=== PATIENT | male | born 1970 | race Caucasian/White ===

== ENCOUNTER 2019-08-07 08:03 | Outpatient (CLI) | payer OTHER, SELFPAY ==
[2019-08-07 17:29] LABS: Basophils Percent Auto 0.4 % (0.2-1.2); Eosinophils Absolute Auto 0.2 K/mm3 (0-0.3); Eosinophils Percent Auto 2.1 % (0-4.4); Hematocrit 45.6 % (42.0-52.0); Hemoglobin 15.6 g/dL (14.0-18.0); Immature Granulocyte Absolute 0.03 K/mm3 (0.00-0.031); Immature Granulocyte Percent A 0.3 % (0-0.5); Lymphocytes Absolute Auto 2.96 K/mm3 (0.9-3.2); Lymphocytes Percent Auto 31.7 % (18.3-44.2); Mean Corpuscular HGB Conc 34.2 g/dl (32-36); Mean Corpuscular Hemoglobin 31.1 pg (26-34); Monocytes Absolute Auto 0.5 K/mm3 (0.1-0.6); Monocytes Percent Auto 5.6 % (2.6-8.5); Neutrophils Absolute Auto 5.6 K/mm3 (1.3-6.7); Neutrophils Percent Auto 59.9 % (45.5-73.1); Platelet Count Result 350 k/mm3 (150-375); Red Blood Count 5.01 M/mm3 (4.6-6.20); Red Cell Distribution Width 12.5 % (11.5-14.5); White Blood Count 9.3 K/mm3 (4.5-10.0)
[2019-08-07 17:31] LABS: Add Urine Microscopic? NO; Appearance Urine Clear (Clear); Bilirubin Urine Negative (Negative); Blood Urine Negative (Negative); Color Urine Yellow (Yellow); Glucose Urine UA Negative (Negative); Ketones Urine Negative (Negative); Leukocyte Esterase Ur Negative LEU/UL (Negative); Nitrate Urine Negative (Negative); Protein Urine Negative (Negative); Specific Grav Ur 1.019 (1.001-1.035); Urobilinogen Urine Negative mg/dL (<2.0)
[2019-08-07 17:38] LABS: Alanine Aminotransferase 88 U/L (4-50); Albumin Level 4.5 g/dL (3.5-5.1); Alkaline Phosphatase 81 U/L (38-126); Aspartate Amino Transferase 53 U/L (17-59); Bilirubin,Total 0.4 mg/dL (0.2-1.3); Blood Urea Nitrogen 15 mg/dL (9-20); CRP 0.9 mg/dL (<1.0); Carbon Dioxide 25 mmol/L (22-30); Chloride 100 mmol/L (98-107); Cholesterol 173 mg/dL (0-200); Estimated Glomerular Filt Rate > 60; Glucose 109 mg/dL (75-110); HDL Direct 48 mg/dL; Potassium 3.8 mmol/L (3.4-5.0); Sodium 137 mmol/L (137-145); Triglycerides 285 mg/dL (<150); Uric Acid 9.3 mg/dL (3.5-8.5)
[2019-08-07 17:47] LABS: LDL Cholesterol Direct 83 mg/dL
[2019-08-07 17:51] LABS: Vitamin D 25 Hydroxy 32.4 ng/mL
[2019-08-07 18:06] LABS: Prostate Specific Antigen 2.1 ng/mL (< OR = 4.0)
[2019-08-07 18:50] LABS: Folic Acid > 20.0 ng/mL (2.76->20)
[2019-08-11 14:34] LABS: Testosterone Free 74.7 pg/mL (35.0-155.0); Testosterone Total 306 ng/dL (250-1100)
== END 2019-08-07 08:04 | disposition home or self-care (01) ==
LOC: ANHBWCLAB 08:05
PROVIDERS: PCP Family Medicine; Visit Provider Family Medicine
DX: Z00.00 Encounter for general adult medical examination without abnormal findings (principal); I10 Essential (primary) hypertension; E78.1 Pure hyperglyceridemia; E79.0 Hyperuricemia without signs of inflammatory arthritis and tophaceous disease; R79.89 Other specified abnormal findings of blood chemistry; Z79.899 Other long term (current) drug therapy; G62.9 Polyneuropathy, unspecified; M65.30 Trigger finger, unspecified finger; G47.00 Insomnia, unspecified
CPT/HCPCS: 36415; 80053; 80061; 81003; 82306; 82607; 82746; 84153; 84402; 84403; 84443; 84550; 85025; 86140; G0103

== ENCOUNTER 2021-04-22 08:58 | Outpatient (CLI) | payer OTHER, SELFPAY ==
[2021-04-22 18:44] LABS: Basophils Absolute Auto 0.1 K/mm3 (0.0-0.1); Basophils Percent Auto 0.5 % (0.2-1.2); Eosinophils Absolute Auto 0.2 K/mm3 (0-0.3); Eosinophils Percent Auto 1.8 % (0-4.4); Hematocrit 43.5 % (42.0-52.0); Hemoglobin 15.3 g/dL (14.0-18.0); Immature Granulocyte Absolute 0.05 K/mm3 (0.00-0.031); Immature Granulocyte Percent A 0.5 % (0-0.5); Lymphocytes Absolute Auto 2.62 K/mm3 (0.9-3.2); Lymphocytes Percent Auto 26.4 % (18.3-44.2); Mean Corpuscular HGB Conc 35.2 g/dl (32-36); Mean Corpuscular Hemoglobin 32.9 pg (26-34); Mean Corpuscular Volume 93.5 fl (80-100); Mean Platelet Volume 8.9 fl (7.4-10.4); Monocytes Absolute Auto 0.6 K/mm3 (0.1-0.6); Monocytes Percent Auto 5.9 % (2.6-8.5); Neutrophils Absolute Auto 6.4 K/mm3 (1.3-6.7); Neutrophils Percent Auto 64.9 % (45.5-73.1); Platelet Count Result 409 k/mm3 (150-375); Red Blood Count 4.65 M/mm3 (4.6-6.20); Red Cell Distribution Width 12.6 % (11.5-14.5); White Blood Count 9.9 K/mm3 (4.5-10.0)
[2021-04-22 19:10] LABS: Hemoglobin A1C 4.9 % (<5.7)
[2021-04-22 19:31] LABS: Alanine Aminotransferase 149 U/L (4-50); Albumin Level 4.6 g/dL (3.5-5.1); Alkaline Phosphatase 98 U/L (38-126); Anion Gap 13 mmol/L (8-16); Aspartate Amino Transferase 90 U/L (17-59); Bilirubin,Total 0.3 mg/dL (0.2-1.3); Blood Urea Nitrogen 12 mg/dL (9-20); Calcium 9.7 mg/dL (8.4-10.2); Carbon Dioxide 22 mmol/L (22-30); Chloride 101 mmol/L (98-107); Cholesterol 170 mg/dL (0-200); Estimated Glomerular Filt Rate > 60; Glucose 111 mg/dL (65-110); HDL Direct 38 mg/dL; Potassium 3.8 mmol/L (3.4-5.0); Sodium 136 mmol/L (137-145); Triglycerides 328 mg/dL (<150); Uric Acid 6.6 mg/dL (3.5-8.5)
[2021-04-22 19:42] LABS: LDL Cholesterol Direct 73 mg/dL
[2021-04-22 20:01] LABS: Prostate Specific Antigen 1.4 ng/mL (< OR = 4.0)
[2021-04-22 20:26] LABS: Vitamin D 25 Hydroxy 48.9 ng/mL
== END 2021-04-22 08:59 | disposition home or self-care (01) ==
LOC: ANHBWCLAB 09:00
PROVIDERS: PCP Family Medicine; Visit Provider Family Medicine
DX: Z12.5 Encounter for screening for malignant neoplasm of prostate (principal); E78.1 Pure hyperglyceridemia; F51.04 Psychophysiologic insomnia; M10.9 Gout, unspecified; I10 Essential (primary) hypertension; R79.89 Other specified abnormal findings of blood chemistry; Z00.00 Encounter for general adult medical examination without abnormal findings; Z51.81 Encounter for therapeutic drug level monitoring; Z79.899 Other long term (current) drug therapy
CPT/HCPCS: 36415; 80053; 80061; 82306; 83036; 84153; 84550; 85025; G0103

== ENCOUNTER 2021-04-29 09:06 | Outpatient (CLI) | payer OTHER, SELFPAY ==
[2021-04-29 19:46] LABS: Hepatitis B Surface Antigen Negative (Negative)
[2021-04-29 19:51] LABS: HAV RESULT Negative (Negative); Hepatitis B Core IgM Result Negative (Negative)
[2021-04-29 20:03] LABS: Hepatitis C Virus Antibody Negative (Negative)
[2021-05-04 09:45] LABS: PRA 2.29 ng/mL/h (0.25-5.82)
[2021-05-06 11:22] LABS: ALT 93 U/L (9-46); Alpha-2-Macroglobulin 140 mg/dL (106-279); Apolipoprotein A1 142 mg/dL (94-176); Fibrosis Score 0.14; Fibrosis Stage F0; GGT 122 U/L (3-95); Haptoglobin 258 mg/dL (43-212); Necroinflammat Act Grade A1-A2; Total Bilirubin 0.4 mg/dL (0.2-1.2)
== END 2021-04-29 09:07 | disposition home or self-care (01) ==
LOC: ANHBWCLAB 09:08
PROVIDERS: PCP Family Medicine; Visit Provider Family Medicine
DX: R74.8 Abnormal levels of other serum enzymes (principal); G62.9 Polyneuropathy, unspecified; I10 Essential (primary) hypertension; Z51.81 Encounter for therapeutic drug level monitoring; Z79.899 Other long term (current) drug therapy
CPT/HCPCS: 36415; 80074; 81596; 82088; 84244

== ENCOUNTER 2021-05-01 09:01 | Outpatient (CLI) | payer OTHER, SELFPAY ==
[2021-05-01 20:40] LABS: Total Volume 24 Hour Urine 2750 ml
[2021-05-01 20:45] LABS: Sodium Urine Random 67 meq/L
[2021-05-01 20:54] LABS: Creatinine Urine 39.3 mg/dL
[2021-05-01 21:18] LABS: Sodium 24 Hour Urine 184 mmol/day (40-220); Total Volume 24 Hour Urine 2750 ml
== END 2021-05-01 09:02 | disposition home or self-care (01) ==
PROVIDERS: PCP Family Medicine; Visit Provider Family Medicine
DX: G62.9 Polyneuropathy, unspecified (principal); R74.8 Abnormal levels of other serum enzymes; I10 Essential (primary) hypertension
CPT/HCPCS: 81050; 82088; 82570; 84300